=== PATIENT | male | born 1965 | race Caucasian/White ===

== ENCOUNTER 2020-04-28 12:35 | Outpatient (NON) | payer BC, SELFPAY ==
[2020-04-29 19:52] LABS: SARS-CoV-2 RNA PCR Positive
== END 2020-04-28 12:36 ==
LOC: ANHCOVIDDT 12:37
PROVIDERS: PCP Family Medicine; Visit Provider Physician Assistant
DX: U07.1 COVID-19 (principal)
CPT/HCPCS: 87635; C9803; U0003

== ENCOUNTER → 2022-04-17 11:04 | Outpatient (CLI) | payer BC, SELFPAY ==
--- NOTE | ~2022-04-17 | MR_ITS ---
EXAMINATION: MR knee LT wo con DATE: 04/17/2022 11:41 INDICATION: Left knee pain TECHNIQUE: Magnetic resonance imaging (MRI) of the left knee was performed without intravenous contra st. Sequences included coronal PD-weighted FSE, coronal PD-weighted FS FSE, sagittal T2-weighted FSE , sagittal PD-weighted FS FSE and axial PD weighted fat saturated FSE. COMPARISON: None. FINDINGS: Medial compartment: Medial meniscus is normal. Articular cartilage is normal. Lateral compartment: Stable appearance of a chronic tear of the lateral meniscus with absence of the majority of the menis mason tissue at the body and lateral side of the anterior horn which could reflect displacement/degener ation or changes of a prior partial meniscectomy. There is a longitudinal horizontal tear plane exten ding across the posterior horn. Interval progression of full-thickness chondral ulceration along the lateral tibial plateau with subtle increase in concavity to the articular cortex consistent with inte rval remodeling. There also appears to be some interval expansion in size of a region of full-thickne ss chondral ulceration centered at the central weightbearing lateral femoral condyle. There is mild s cattered underlying subarticular edema-like signal change on both the lateral femoral condyle and lat eral tibial plateau. Patellofemoral compartment: No significant change in mild partial-thickness chondral fissuring along the medial side of the troch lear groove and patellar apical ridge. Ligaments and tendons: Anterior and posterior cruciate ligaments are normal. The medial collateral ligament and fibular paul ateral ligament complex are normal. The extensor mechanism is normal. The visualized medial and later al hamstring tendons as well as the iliotibial band are normal. Fluid: Physiologic amount of fluid in the joint space. No loose osteochondral bodies identified. Osseous/other: Normal alignment. No fracture or pathologic marrow replacing process. IMPRESSION: 1. 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 2. 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 3. 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 Reviewed, dictated and finalized at location B. IMPRESSION: 1. No significant change in a chronic complex tear of the lateral meniscus supe rimposed over likely change of prior partial meniscectomy. 2. Severe osteoarthritis in medial compartment with interval progression of ext ensive full/near full-thickness cartilage loss at both sides of the joint space , now with early remodeling of the lateral tibial plateau. 3. Unchanged small amount of moderate grade chondromalacia in the patellofemora l compartment.
== END ==
PROVIDERS: PCP Family Medicine; Visit Provider Specialist
DX: M17.12 Unilateral primary osteoarthritis, left knee (principal)
CPT/HCPCS: 73721

== ENCOUNTER 2022-04-27 14:46 | Outpatient (CLI) | payer BC, SELFPAY ==
--- NOTE | 2022-04-27 15:37 | ECG_ITS ---
Measurements Intervals [place] Rate: 54 P: 63 CA: 205 QRS: 87 QRSD: 83 T: 10 QT: 422 QTc: 403 Interpretive Statements SINUS BRADYCARDIA BORDERLINE AV CONDUCTION DELAY RSR' IN V1 OR V2, PROBABLY NORMAL VARIANT DELAYED PRECORDIAL R/S TRANSITION BORDERLINE T WAVE ABNORMALITY- INFERIOR LEADS BORDERLINE ECG NO PREVIOUS ECG AVAILABLE FOR COMPARISON Electronically Signed On 04-27-2022 16:24:59 [employer] by Marv Munguia D.O.
[2022-04-27 16:24] LABS: Alanine Aminotransferase 34 U/L (6-50); Albumin Level 4.2 g/dL (3.5-5.1); Alkaline Phosphatase 45 U/L (38-126); Anion Gap 10 mmol/L (8-16); Aspartate Amino Transferase 35 U/L (17-59); Bilirubin,Total 0.8 mg/dL (0.2-1.3); Blood Urea Nitrogen 23 mg/dL (9-20); Carbon Dioxide 29 mmol/L (22-30); Chloride 100 mmol/L (98-107); Estimated Glomerular Filt Rate > 60; Glucose 78 mg/dL (65-110); Potassium 3.9 mmol/L (3.4-5.0); Sodium 139 mmol/L (137-145)
[2022-04-27 16:32] LABS: Basophils Absolute Auto 0.1 K/mm3 (0.0-0.1); Basophils Percent Auto 1.1 % (0.2-1.2); Eosinophils Absolute Auto 0.3 K/mm3 (0-0.3); Eosinophils Percent Auto 5.3 % (0-4.4); Hematocrit 45.1 % (42.0-52.0); Immature Granulocyte Absolute 0.03 K/mm3 (0.00-0.031); Immature Granulocyte Percent A 0.5 % (0-0.5); Lymphocytes Absolute Auto 1.54 K/mm3 (0.9-3.2); Lymphocytes Percent Auto 24.8 % (18.3-44.2); Mean Corpuscular HGB Conc 33.3 g/dl (32-36); Mean Corpuscular Hemoglobin 32.4 pg (26-34); Mean Corpuscular Volume 97.4 fl (80-100); Mean Platelet Volume 12.1 fl (7.4-10.4); Monocytes Absolute Auto 0.4 K/mm3 (0.1-0.6); Monocytes Percent Auto 6.9 % (2.6-8.5); Neutrophils Absolute Auto 3.8 K/mm3 (1.3-6.7); Neutrophils Percent Auto 61.4 % (45.5-73.1); Platelet Count Result 173 k/mm3 (150-375); Red Blood Count 4.63 M/mm3 (4.6-6.20); Red Cell Distribution Width 12.4 % (11.5-14.5); White Blood Count 6.2 K/mm3 (4.5-10.0)
== END 2022-04-27 14:47 | disposition home or self-care (01) ==
PROVIDERS: PCP Family Medicine; Visit Provider Family Medicine
DX: Z01.818 Encounter for other preprocedural examination (principal)
CPT/HCPCS: 36415; 80053; 85025; 93005

== ENCOUNTER 2022-05-29 13:07 | Outpatient (CLI) | payer BC, SELFPAY ==
[2022-05-29 13:58] LABS: Influenza A QL RT-PCR Negative (Negative); Influenza B QL RT-PCR Negative (Negative); RSV RNA, RT-PCR Negative (Negative); SARS-CoV-2 RNA PCR Negative
== END 2022-05-29 13:08 | disposition home or self-care (01) ==
LOC: ANHLAB 13:09
PROVIDERS: PCP Family Medicine; Visit Provider Physician Assistant
DX: R50.9 Fever, unspecified (principal); Z20.822 Contact with and (suspected) exposure to COVID-19
CPT/HCPCS: 87637

== ENCOUNTER 2022-06-06 16:03 | Outpatient (NON) | payer BC, SELFPAY ==
[2022-06-06 16:38] LABS: Add Urine Microscopic? NO; Appearance Urine Clear (Clear); Bilirubin Urine Negative (Negative); Blood Urine Negative (Negative); Color Urine Light Yellow (Yellow); Glucose Urine UA Negative (Negative); Ketones Urine Negative (Negative); Leukocyte Esterase Ur Negative LEU/UL (Negative); Nitrate Urine Negative (Negative); Protein Urine Negative (Negative); Specific Grav Ur 1.015 (1.001-1.035); Urobilinogen Urine 0.2 mg/dL (<2.0); pH Urine 6.5 (5.0-9.0)
[2022-06-06 16:47] LABS: Amorphous Sediment Urine Moderate; Bacteria Urine Trace /hpf; Mucus Urine Rare /lpf; WBC Urine 0-3 /hpf
== END 2022-06-06 16:04 | disposition home or self-care (01) ==
LOC: HOME HLTH 16:05
PROVIDERS: PCP Family Medicine; Visit Provider Family Medicine
DX: Z47.1 Aftercare following joint replacement surgery (principal); Z79.891 Long term (current) use of opiate analgesic; Z79.01 Long term (current) use of anticoagulants; Z96.641 Presence of right artificial hip joint
CPT/HCPCS: 81003

== ENCOUNTER 2024-06-04 14:15 | Emergency (ER) | payer BC, SELFPAY ==
--- NOTE | ~2024-06-04 | XR_ITS ---
EXAMINATION: XR chest 2V DATE: 06/04/2024 14:54 INDICATION: Cough and dyspnea. TECHNIQUE: Frontal and lateral views of the chest were obtained. COMPARISON: None. FINDINGS: Calcified pulmonary nodules are consistent with old granulomatous disease. There are airspa ce opacities in basilar left lower lobe. No pleural effusion or pneumothorax. The heart size is radha l. IMPRESSION: 1. Airspace opacities in basilar left lower lobe, consistent with pneumonia. Reviewed, dictated and finalized at location A. OPERATOR
[2024-06-04 14:16] VITALS: BP 124/56; PULSE 90; RESP 16; TEMP 36.4; O2SAT 93
[2024-06-04 15:12] LABS: Influenza A QL RT-PCR Negative (Negative); Influenza B QL RT-PCR Negative (Negative); RSV RNA, RT-PCR Negative (Negative); SARS-CoV-2 RNA PCR Negative (Negative)
[2024-06-04 15:59] VITALS: PULSE 62; RESP 18
[2024-06-04] MEDS: IPRATROPIUM 0.5 MG/ALBUTEROL SULFATE 2.5 MG AMPUL.NEB 3 ML INHALATION (15:59)
[2024-06-04 16:06] VITALS: PULSE 64; RESP 18
--- NOTE | 2024-06-04 16:30 | ED.GENADULT ---
HPI - General Adult General Chief complaint: Upper Respiratory Infection Stated complaint: uri Time Seen by Provider: 06/04/24 15:12 History of Present Illness HPI narrative: patient is a 58-year-old male who presents ER with productive cough. No fevers or chills. Mild exertional dyspnea times. He will use an inhaler to help with his symptoms. Was seen in urgent care and diagnosed with bronchitis. Given steroids and cefdinir. Feels like he is not improving. Related Data Home Medications ?Medication ?Instructions ?Recorded ?Confirmed ?Last Taken ?Type [id number]-[id number]-[id number] acid 400 tablet PO 02/08/21 02/20/24 Unknown History mcg-vit K 20 mcg-lycop 300 mcg tablet (Men's Multivitamin) Allergies Allergy/AdvReac Type Severity Reaction Status Date / Time Sulfa (Sulfonamide Allergy Severe FACIAL Verified 02/20/24 14:53 Antibiotics) SWELLING Review of Systems Review of Systems: All systems reviewed & are unremarkable except as noted in HPI and below Constitutional: Constitutional: Reports no additional constitutional complaints ENT: Reports system reviewed and no additional complaints, except as documented Cardiovascular: Cardiovascular: Reports no additional cardiovascular complaints Respiratory: Respiratory: Reports no additional respiratory complaints [facility] Past Medical History Medical History Healthy adult male Surgical History Surgical History History of hip surgery 05/31/22 History of hip surgery 06/16/22 Family History Family History Other Cerebrovascular accident Hypertension Social History Social History Smoking status: Never smoker Second hand tobacco smoke exposure: No Alcohol intake: never Substance use: never Substance use type: does not use Exam Narrative: GENERAL: Well-appearing, well-nourished, and in no acute distress. HEAD: Normocephalic, atraumatic. ENT: Mucous membranes moist. CHEST: Clear to auscultation. No respiratory distress. HEART: Regular rate and rhythm. Normal peripheral pulses. EXTREMITIES: Normal range of motion. No edema. NEURO: Alert and oriented x3. PSYCH: Normal mood and affect. Course Course Emergency Course: Ambulates without hypoxia. Will give doxycycline for home to broaden antibiotic coverage. Vital Signs Vital signs: Vital Signs Temperature 97.6 F 06/04/24 14:16 Pulse Rate 90 06/04/24 14:16 Respiratory Rate 16 06/04/24 14:16 Blood Pressure 124/56 L 06/04/24 14:16 Pulse Oximetry 93 06/04/24 14:16 Oxygen Delivery Room Air 06/04/24 14:16 Temperature 98.7 F 06/04/24 16:51 Pulse Rate 84 06/04/24 16:51 Respiratory Rate 19 06/04/24 16:51 Blood Pressure 137/85 06/04/24 16:51 Pulse Oximetry 95 06/04/24 16:51 Oxygen Delivery Room Air 06/04/24 14:16 Medical Decision Making Vital Signs Vital Signs: Vital Signs Temperature 97.6 F 06/04/24 14:16 Pulse Rate 90 06/04/24 14:16 Respiratory Rate 16 06/04/24 14:16 Blood Pressure 124/56 L 06/04/24 14:16 Pulse Oximetry 93 06/04/24 14:16 Oxygen Delivery Room Air 06/04/24 14:16 Temperature 98.7 F 06/04/24 16:51 Pulse Rate 84 06/04/24 16:51 Respiratory Rate 19 06/04/24 16:51 Blood Pressure 137/85 06/04/24 16:51 Pulse Oximetry 95 06/04/24 16:51 Oxygen Delivery Room Air 06/04/24 14:16 Lab Data Labs: Lab Results 06/04/24 Range/Units 14:22 Influenza A (RT-PCR) Negative (Negative) Influenza B (RT-PCR) Negative (Negative) RSV (RT-PCR) Negative (Negative) SARS-CoV-2 RNA (RT-PCR) Negative (Negative) Imaging Data Radiologist's impression: ITS Impressions Chest X-Ray 06/04/24 14:56 IMPRESSION: 1. Airspace opacities in basilar left lower lobe, consistent with pneumonia. Discharge Plan Discharge Clinical Impression: Pneumonia Patient Disposition: Home, Self-Care Condition: Stable Instructions: Pneumonia (ED) Additional Instructions: Please return to the emergency department if you develop severe and persistent chest pain, difficulty breathing, dizziness, leg swelling or if you are coughing up blood as these can be signs of a medical emergency. Please call your doctor for a follow up appointment to determine the need for further testing. Patient Language: Telugu Prescriptions: New doxycycline hyclate 100 mg tablet 100 mg PO BID Qty: 10 0RF No Action Men's Multivitamin 400-20-300 mcg tablet PO tamsulosin 0.4 mg capsule 0.4 mg PO DAILY Qty: 30 5RF Follow-up/Referrals: Johnna Newton MD [Primary Care Provider] - 1 Week
[2024-06-04 16:51] VITALS: BP 137/85; PULSE 84; RESP 19; TEMP 37.1; O2SAT 95
== END 2024-06-04 16:56 | disposition home or self-care (01) ==
PROVIDERS: Emergency Provider Emergency Medicine; PCP Family Medicine
DX: J18.9 Pneumonia, unspecified organism (principal); Z20.822 Contact with and (suspected) exposure to COVID-19
CPT/HCPCS: 71046; 87637; 94640; 99283